=== PATIENT | male | born 1985 | race Two or more races ===

== ENCOUNTER 2018-03-10 21:42 | Emergency (ER) | payer OTHER ==
[2018-03-10] MEDS: DEXAMETHASONE 4 MG TAB PO ONE (23:16)
[2018-03-10] MEDS: IBUPROFEN 600 MG TAB PO ONE (23:16)
--- NOTE | 2018-03-10 23:25 | EDPHY ---
H & P Time Seen by Provider: 03/10/18 23:03 HPI/ROS: CHIEF COMPLAINT: Sore throat HISTORY OF PRESENT ILLNESS: 33-year-old male presents to the emergency department with sore throat over last 2 days. Patient denies any known ill contacts. No known fevers although he felt subjectively chilled. No pain in his chest or difficulty breathing. No abdominal pain. No vomiting. No dysphagia. Denies rhinorrhea, nasal congestion or cough. No rash. REVIEW OF SYSTEMS: Constitutional: Subjective chills, no known fever. Eyes: No double or blurry vision. ENT: Sore throat as above Respiratory: No cough, no shortness of breath. Cardiac: No chest pain. Gastrointestinal: No abdominal pain, vomiting or diarrhea. Genitourinary: No dysuria. Musculoskeletal: No neck or back pain. Skin: No rashes. Neurological: No headache. Past Medical/Surgical History: Negative Social History: Smoking Status: Current some day smoker Physical Exam: General Appearance: Alert, no distress. Afebrile. Eyes: Pupils equal and round. Extraocular motions are all intact. ENT: Mouth: Mucous membranes moist. No muffled voice or trismus. Posterior pharyngeal injection noted with small exudate and 2+ enlarged tonsils. No uvular swelling or shift. Respiratory: No wheezing, rhonchi, or rales, lungs are clear to auscultation. Cardiovascular: Regular rate and rhythm. Gastrointestinal: Abdomen is soft and nontender, no masses, no rebound or guarding, bowel sounds normal. Neurological: Alert and oriented x 3, cranial nerves II through XII grossly intact Skin: Warm and dry, no rashes. Musculoskeletal: Nontender to palpate along the cervical, thoracic or lumbar spine. Neck is supple. Extremities: Full range of motion and no peripheral edema. Psychiatric: Patient is oriented X 3, there is no agitation. Constitutional: Initial Vital Signs Temperature (C) 37.0 C 03/10/18 21:45 Heart Rate 103 H 03/10/18 21:45 Respiratory Rate 16 03/10/18 21:45 Blood Pressure 123/77 H 03/10/18 21:45 O2 Sat (%) 95 03/10/18 21:45 O2 Delivery Mode Room Air Allergies/Adverse Reactions: No Known Allergies Allergy (Unverified 03/10/18 21:49) Home Medications: Medication Instructions Recorded Penicillin V Potassium 500 mg PO BID #20 tablet 03/10/18 Medical Decision Making ED Course/Re-evaluation: 33-year-old male presents to the emergency department with sore throat. Rapid strep screen is pending. Patient was given 600 mg of ibuprofen p.o. And 10 mg of oral Decadron. Rapid strep was positive. He will be treated with Pen-VK 500 mg twice daily for 10 days. He was encouraged to discard his toothbrush in 48 hr and return sooner if he has any other concerns. Differential Diagnosis: Including but not limited to strep pharyngitis, peritonsillar abscess, viral syndrome, mononucleosis - Data Points Laboratory Results: 03/10/18 22:00 Group A Strep Screen POSITIVE H (NEGATIVE) Medications Given: Discontinued Medications Dexamethasone (Decadron) 10 mg PO EDNOW ONE Stop: 03/10/18 23:14 Last Admin: 03/10/18 23:16 Dose: 10 mg Ibuprofen (Motrin) 600 mg PO EDNOW ONE Stop: 03/10/18 23:14 Last Admin: 03/10/18 23:16 Dose: 600 mg Penicillin V Potassium (Pen Vk 250 Mg Prepack#6) 1 btl TAKEHOME EDNOW ONE PRN Reason: Protocol Stop: 03/10/18 23:30 Last Admin: 03/10/18 23:37 Dose: 1 btl Departure - Departure Disposition: Home, Routine, Self-Care Clinical Impression: Strep pharyngitis Condition: Good Instructions: Strep Throat (ED) Additional Instructions: Penicillin 500 mg twice daily for 10 days. Discard toothbrush after you have been on oral antibiotics for 48 hr. Adult Pain & Fever Control: We recommend Acetaminophen (Tylenol) and Ibuprofen (Motrin,Advil) for pain and fever control. When fever is high or pain severe, both drugs can be used at the same time, but at different intervals. Please note the time differences. Your dose is: Acetaminophen 1000mg every 4 to 6 hours Ibuprofen 600mg every 8 hours with food Note: do not take Acetaminophen with Hydrocodone (Vicodin, Lortab) or Oycodone (Percocet). These medications also contain Acetaminophen. No more than 3000mg of Acetaminophen should be taken in 24 hours (for an adult). Return to the emergency department if you developed difficulty breathing or swallowing or if you feel worse in any way. Referrals: Testori,Parviz, MD [Medical Doctor] - 2-3 days, if not improved (Primary care provider household personal assistant) Prescriptions: Penicillin V Potassium 500 mg PO BID #20 tablet
[2018-03-10] MEDS: PENICILLIN VK 250MG PREPACK#6 BTL TAKEHOME ONE (23:37)
[2018-03-10 23:40] VITALS: BP 131/74
== END 2018-03-10 23:40 | disposition home or self-care (01) ==
DX: J02.0 Streptococcal pharyngitis (principal)